=== PATIENT | female | born 1985 | race Caucasian/White ===

== ENCOUNTER 2023-08-30 16:01 | Outpatient (CLI) | payer BC, SELFPAY ==
[2023-08-30] MEDS: iohexol 350 mg/mL 500 mL Btl (per mL) IV (16:06)
[2023-08-30 16:42] LABS: Basophils % 0.4 %; Eosinophils # 0.3 10^3/uL (0.0-0.8); Eosinophils % 3.4 %; Hematocrit 43.3 % (36-47); Lymphocytes # 2.9 10^3/uL (0.8-4.8); Lymphocytes % 30.8 %; Mean Corpuscular HGB Conc 32.3 g/dL (30-55); Mean Corpuscular Hemoglobin 29.5 pg (27-33); Mean Corpuscular Volume 91.2 fl (85-98); Mean Platelet Volume 9.4 fL (7.4-10.4); Monocytes # 0.5 10^3/uL (0.2-0.9); Monocytes % 5.2 %; Neutrophils # 5.67 10^3/uL (1.8-7.7); Neutrophils % 59.9 %; Nucleated Red Blood Cells % 0 %; Platelet Count 357 10^3/cmm (157-399); Red Blood Count 4.75 10^6/uL (3.85-5.65); Red Cell Distribution Width 12.2 % (12.1-15.1); White Blood Count 9.46 10^3/uL (3.29-11.43)
--- NOTE | 2023-08-30 17:00 | CTR_ITS ---
PROCEDURE INFORMATION: Exam: CT Abdomen And Pelvis With Contrast Exam date and time: 08/30/2023 4:47 PM Age: 38 years old Clinical indication: Abdominal pain; Generalized; Prior surgery; Surgery date: 6+ months; Surgery type: Btl; Additional info: R10.9 - unspecified abdominal pain TECHNIQUE: Imaging protocol: Computed tomography of the abdomen and pelvis with contrast. Axial, coronal and sagittal reformatted images were created and reviewed. Radiation optimization: All CT scans at this facility use at least one of these dose optimization techniques: automated exposure control; mA and/or kV adjustment per patient size (includes targeted exams where dose is matched to clinical indication); or iterative reconstruction. Contrast material: OMNIPAQUE 350; Contrast volume: 100 ml; Contrast route: INTRAVENOUS (IV); Other contrast: Oral, omnipaque, 50 omni/ 850 water; REPORTING DATA: Count of CT and Cardiac NM exams in prior 12 months: This patient has received 0 known CTs and 0 known cardiac nuclear medicine studies in the 12 months prior to the current study. COMPARISON: ES surgery / GI images 04/09/2019 3:38 AM RADIATION DOSE METRICS: Total DLP (mGy-cm): 1344.24 FINDINGS: Liver: Unremarkable. Gallbladder and bile ducts: No radiodense gallstones. No biliary ductal dilatation. Pancreas: Unremarkable. Spleen: Unremarkable. Adrenal glands: Normal. No mass. Kidneys and ureters: No mass. No radiodense calculi. No hydronephrosis. Stomach and bowel: Scattered colonic diverticula without evidence of diverticulitis. No obstruction. No bowel wall thickening. No pneumatosis. Appendix: Markedly abnormal appendix, which is markedly distended without abnormal masslike wall thickening. Intraperitoneal space: No free fluid. No organized fluid collection. No free air. Vasculature: Unremarkable. No aneurysm. Lymph nodes: Small mesenteric lymph nodes, nonspecific in appearance. No pathologically enlarged lymph nodes. Urinary bladder: Unremarkable as visualized. Reproductive: Probable involuting right ovarian corpus luteal cyst versus dominant follicle. Bones/joints: No acute osseous abnormality. Soft tissues: Unremarkable. CT/CT abdomen pelvis w con* [id number] IMPRESSION: 1. Markedly abnormal appendix, which is markedly distended without abnormal masslike wall thickening. 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 2. Additional findings, as above.
[2023-08-30 17:22] LABS: Alanine Aminotransferase 20 U/L (0-33); Albumin Level 4.3 g/dL (3.5-5.2); Alkaline Phosphatase 95 U/L (35-105); Amylase 51 U/L (28-100); Anion Gap 15.3 (5-19); Aspartate Amino Transferase 19 U/L (0-32); Blood Urea Nitrogen 9 mg/dL (6-20); Calcium 8.7 mg/dL (8.5-10.5); Carbon Dioxide 26 mmol/L (22-29); Chloride 102 mmol/L (98-107); Globulin 2.6 g/dL (1.3-4.6); Glomerular Filtration Rate 80.7 mL/min (90-130); Glucose 96 mg/dL (65-115); Lipase 45 U/L (13-60); Osmolality Calculated 287 mOsm/kg (285-295); Potassium 4.3 mmol/L (3.5-5.1); Sodium 139 mmol/L (136-145); Total Bilirubin 0.4 mg/dL (0.15-1.2); Total Protein 6.9 g/dL (6.6-8.7)
== END 2023-08-30 16:02 | disposition home or self-care (01) ==
PROVIDERS: PCP Physician Assistant Medical; Visit Provider Nurse Practitioner Family
DX: R10.9 Unspecified abdominal pain (principal); R93.89 Abnormal findings on diagnostic imaging of other specified body structures; Z98.890 Other specified postprocedural states
CPT/HCPCS: 36415; 74177; 80053; 82150; 83690; 85025; Q9967

== ENCOUNTER 2023-08-30 20:27 | Observation (INO) | payer BC, SELFPAY ==
[2023-08-30 20:29] VITALS: BP 147/90; PULSE 106; RESP 18; TEMP 36.8; O2SAT 97; BMI 35.4
[2023-08-30 20:55] LABS: Basophils # 0.1 10^3/uL (0.0-0.1); Basophils % 0.4 %; Eosinophils # 0.2 10^3/uL (0.0-0.8); Eosinophils % 1.3 %; Hematocrit 41.8 % (36-47); Lymphocytes # 2.1 10^3/uL (0.8-4.8); Lymphocytes % 16.5 %; Mean Corpuscular HGB Conc 32.5 g/dL (30-55); Mean Corpuscular Hemoglobin 29.4 pg (27-33); Mean Corpuscular Volume 90.3 fl (85-98); Mean Platelet Volume 9.5 fL (7.4-10.4); Monocytes # 0.6 10^3/uL (0.2-0.9); Monocytes % 4.4 %; Neutrophils # 9.62 10^3/uL (1.8-7.7); Nucleated Red Blood Cells % 0 %; Platelet Count 344 10^3/cmm (157-399); Red Blood Count 4.63 10^6/uL (3.85-5.65); Red Cell Distribution Width 12.2 % (12.1-15.1); White Blood Count 12.49 10^3/uL (3.29-11.43)
[2023-08-30 21:15] LABS: Alanine Aminotransferase 21 U/L (0-33); Albumin Level 4.2 g/dL (3.5-5.2); Alkaline Phosphatase 96 U/L (35-105); Anion Gap 15.8 (5-19); Aspartate Amino Transferase 17 U/L (0-32); Blood Urea Nitrogen 9 mg/dL (6-20); Calcium 8.7 mg/dL (8.5-10.5); Carbon Dioxide 24 mmol/L (22-29); Chloride 103 mmol/L (98-107); Globulin 2.6 g/dL (1.3-4.6); Glomerular Filtration Rate 62.4 mL/min (90-130); Glucose 126 mg/dL (65-115); Lipase 38 U/L (13-60); Osmolality Calculated 288 mOsm/kg (285-295); Potassium 3.8 mmol/L (3.5-5.1); Sodium 139 mmol/L (136-145); Total Bilirubin 0.3 mg/dL (0.15-1.2); Total Protein 6.8 g/dL (6.6-8.7)
[2023-08-30 21:22] LABS: HCG, Serum Qual Negative (Negative)
--- NOTE | 2023-08-30 23:34 | ED_ITS ---
HPI - Abdominal Pain General: Chief Complaint: Abdominal Pain Stated Complaint: Sent by Dr Huynh about appendex Time Seen by Provider: 08/30/23 23:27 History of Present Illness: 38-year-old female comes in today with complaints of abdominal pain. Patient was seen earlier by primary care and referred to the ER for further evaluation and treatment. Patient did have a CT scan done by primary care which noted an appendical mass, possibly adenocarcinoma. Patient has been seen by her primary care for left abdominal tenderness. Patient appears nontoxic. Patient appears in mild to no pain. Patient has a history of some depression and migraine headaches. Patient takes no routine medicines. Patient's only surgery has been a tubal ligation. Associated Symptoms: Reports other (Abnormal CT scan) Review of Systems General: Reports: 10 or more systems reviewed and unremarkable except in HPI and below GI: Reports: abdominal pain and other (Abnormal CT scan) [facility] ED PFSH: Medical History Depression Hx of migraine headaches Surgical History History of tubal ligation Family History Father Hypertension Diabetes Mother Healthy female Social History Smoking and tobacco/nicotine status: never used tobacco/nicotine Second hand smoke exposure: No Lives independently: Yes Household members: spouse and children Physical Exam Const: COMMON NORMALS: alert HENMT: COMMON NORMALS: normocephalic HEAD & SCALP: normocephalic Neck/C-Spine: COMMON NORMALS: full ROM Resp: COMMON NORMALS: normal respiratory effort and clear to auscultation bilaterally AUSCULTATION: clear to auscultation bilaterally Cardio: COMMON NORMALS: regular rate and regular rhythm RATE: regular rate RHYTHM: regular rhythm GI: COMMON NORMALS: Soft to palpation AUSCULTATION: Yes normoactive bowel sounds PALPATION: Yes Soft to palpation and Yes Tenderness to palpation present (GI) (Midepigastric to left upper quadrant) : COMMON NORMALS: Yes no CVA tenderness BLADDER/KIDNEY EXAM: Yes no CVA tenderness Back/Pelvis: COMMON NORMALS: no CVA tenderness and thoracic and lumbar spine normal to inspection Extremity: COMMON NORMALS: normal to inspection and no pedal edema Neuro: SENSORIUM/ORIENTATION: Yes alert Skin: COMMON NORMALS: turgor normal GENERAL SKIN EXAM: turgor normal Course Vital Signs: Vital signs: Vital Signs Temperature 98.2 F 08/30/23 20:29 Pulse Rate 75 10 23:38 Respiratory Rate 18 08/30/23 23:38 Blood Pressure 135/75 08/30/23 23:38 Pulse Oximetry 97 08/30/23 23:38 Oxygen Delivery Me thod Room Air 08/30/23 23:38 MDM - Abdominal Pain Medical Decision Making 38-year-old female comes in today for complaints Abdominal pain and abnormal CT scan done by primary care. Patient reports that she has been having left-sided abdominal pain on and off for 2 weeks. Patient seen primary care today and was ordered a CT scan for further evaluation. CT scan noted diverticula but also noted a appendical mass suggestive of adenocarcinoma. Differential diagnosis includes not limited to appendicitis, appendiceal mass, abscess, adenocarcinoma, diverticulitis, urinary tract infection. CBC showed a leukocytosis of 12.49, CMP had a creatinine 1.0 with remainder labs normal. Discussed exam with Dr. Greene, attending ER physician, who recommended I contact Dr. Cordova, on-call surgeon. Discussed the CT scan with Dr. Cordova who agreed to admission of patient to his services for further evaluation and probable surgical intervention in the morning. Reviewed this with patient and family who agreed to plan. Patient needs admission for IV fluids, IV antibiotics, surgical evaluation and treatment. Lab Data 08/30/23 20:45 08/30/23 20:45 Labs/Radiology: Laboratory Results WBC 12.49 10^3/uL (3.29-11.43) H 08/30/23 20:45 RBC 4.63 10^6/uL (3.85-5.65) 08/30/23 20:45 Hgb 13.60 g/dL (11.27-16.99) 08/30/23 20:45 Hct 41.8 % (36-47) 08/30/23 20:45 MCV 90.3 fl (85-98) 08/30/23 20:45 MCH 29.4 pg (27-33) 08/30/23 20:45 MCHC 32.5 g/dL (30-55) 08/30/23 20:45 RDW 12.2 % (12.1-15.1) 08/30/23 20:45 Plt Count 344 10^3/cmm (157-399) 08/30/23 20:45 MPV 9.5 fL (7.4-10.4) 08/30/23 20:45 Neut % (Auto) 77.0 % 08/30/23 20:45 Lymph % (Auto) 16.5 % 08/30/23 20:45 [place] % (Auto) 4.4 % 08/30/23 20:45 Eos % (Auto) 1.3 % 08/30/23 20:45 Baso % (Auto) 0.4 % 08/30/23 20:45 Neut # (Auto) 9.62 10^3/uL (1.8-7.7) H 08/30/23 20:45 Lymph # (Auto) 2.1 10^3/uL (0.8-4.8) 08/30/23 20:45 [place] # (Auto) 0.6 10^3/uL (0.2-0.9) 08/30/23 20:45 Eos # (Auto) 0.2 10^3/uL (0.0-0.8) 08/30/23 20:45 Baso # (Auto) 0.1 10^3/uL (0.0-0.1) 08/30/23 20:45 Nucleated RBC % (auto) 0 % 08/30/23 20:45 Nucleated RBCs # 0.0 /100WBC 08/30/23 20:45 Sodium 139 mmol/L (136-145) 08/30/23 20:45 Potassium 3.8 mmol/L (3.5-5.1) 08/30/23 20:45 Chloride 103 mmol/L (98-107) 08/30/23 20:45 Carbon Dioxide 24 mmol/L (22-29) 08/30/23 20:45 Anion Gap 15.8 (5-19) 08/30/23 20:45 BUN 9 mg/dL (6-20) 08/30/23 20:45 Creatinine 1.0 mg/dL (0.5-0.9) H 08/30/23 20:45 GFR Calculation 62.4 mL/min (90-130) L 08/30/23 20:45 Glucose 126 mg/dL (65-115) H 08/30/23 20:45 Calculated Osmolality 288 mOsm/kg (285-295) 08/30/23 20:45 Calcium 8.7 mg/dL (8.5-10.5) 08/30/23 20:45 Total Bilirubin 0.3 mg/dL (0.15-1.2) 08/30/23 20:45 AST 17 U/L (0-32) 08/30/23 20:45 ALT 21 U/L (0-33) 08/30/23 20:45 Alkaline Phosphatase 96 U/L (35-105) 08/30/23 20:45 Total Protein 6.8 g/dL (6.6-8.7) 08/30/23 20:45 Albumin 4.2 g/dL (3.5-5.2) 08/30/23 20:45 Globulin 2.6 g/dL (1.3-4.6) 08/30/23 20:45 Lipase 38 U/L (13-60) 08/30/23 20:45 HCG, Qual Negative (Negative) 08/30/23 20:45 All radiology interpretation(s) finalized by discharge Discharge Plan Discharge Patient Disposition: Admitted As Inpatient Admit Provider: Nikita Cordova Clinical Impression: Appendiceal tumor Condition: Stable Coding Level of Care Code ED Wringer Operator for Maddie Calderon
[2023-08-30 23:38] VITALS: BP 135/75; PULSE 75; RESP 18; O2SAT 97
[2023-08-31] VITALS (18 sets, daily range): BP systolic 102–170; BP diastolic 63–89; PULSE 67–94; RESP 9–20; TEMP 36.1–36.9; O2SAT 90–97
--- NOTE | 2023-08-31 00:07 | PC.NURSE ---
Report called to Amy WEBB, to [facility] room 258. All questions and concerns addressed at time of report.
[2023-08-31] MEDS: piperacillin-tazobactam 3.375 GM in sodium chloride 0.9% (plus) 50 ML IV ×3 (00:28→11:36)
[2023-08-31 00:50] LABS: Add Urine Microscopic? NO; Charge for UA Resulting for Rev
[2023-08-31 01:07] LABS: Bilirubin Urine Neg (Negative); Blood Urine Neg (Negative); Glucose Urine UA Norm (Normal); Ketones Urine Negative (Negative); Leukocyte Esterase Urine Negative (Negative); Nitrate Urine Negative (Negative); Protein Urine Neg (Negative); Urine Appearance Clear (CLEAR); Urine Color Yellow (Yellow); Urobilinogen Urine 1 mg/dL (Negative); pH Urine 7 (5-7)
[2023-08-31] MEDS: morphine 4 mg/mL SDV 1 mL IVP ×3 (02:56→20:40)
--- NOTE | 2023-08-31 09:26 | PC.CHAP ---
Pastoral Care Encounter/Spiritual Assessment Type of Contact [] Declined elevator constructor hydraulic visit [] Patient/Family/Request visit [] Outpatient visit [] Follow-up visit [] Physician referral [] Code/Alert [x] Routine visit [] Staff referral [] Actively dying [] Patient sleeping [x] Family support [] [] Out of room [] Palliative care [] [] Receiving care in room [] Pre-surgical visit [] Trauma [] Long length of stay [] ICU visit [] Other: Relational/Emotional Strength [x] Patient feels connected with others/family/visitors/staff [] Distress [] Loneliness/isolation [] Abandonment Spirituality of Patient [x] Person of [place] [] Attends Druze of their [place] [x] Believes in Prayer [] Reads Bible or Mosque materials [] There are Spiritual issues to be addressed Account Resolution Analyst Interventions [x] Prayer [x] Active listening [] Non-anxious presence [x] Spiritual/emotional support [] Crisis/trauma care [] Spiritual counseling [] Bereavement support [] Provided bereavement packet [] Provided Bible/devotional materials [] Provided toy/stuffed animal, coloring book to patient or family member [] Provided Communion [] Anointing/[place] [] Salvation [x] Completed spiritual assessment [] Other: Impact on Illness or Injury [] Angry [] Fearful [] Anxious [] Often cries [] Exhaustion [] Unable to work [] Unable to attend restorationism [] Unable to walk/stand [] Unable to read [] Unable to drive [] Unable to eat/drink [] Unable to sleep [] Unable to be with family [] Patient intubated [] Other: Summary Time spent with patient 5 min
--- NOTE | 2023-08-31 13:12 | P.HP_ITS ---
Providers/Chief Complaint Admitting Physician: Nikita Cordova DO Primary Care Provider: MUNIRA Dimas Chief Complaint: Sent by Worried about appendex History of Present Illness Jackie Cline is a 38 year old female who presents to the hospital with 1 week history of periumbilical abdominal pain. The pain is dull and constant and does not radiate. Palpation makes pain worse. Nothing seems to make the pain better. Denies any nausea, emesis, diarrhea, constipation, hematochezia and/or melena. She was limited her PCP for this who ordered a CT of the abdomen pelvis. CT shows a markedly dilated appendix concerning for possible neoplasm. Review of Systems General: Reports: 10 or more systems reviewed and unremarkable except in HPI and below Medications/Allergies Home Medications Medication Instructions Recorded Confirmed Last Taken Type sumatriptan succinate 25 mg tablet 25 mg PO Q2H PRN Migraine Headache 08/23/21 08/31/23 Unknown History escitalopram oxalate 20 mg tablet 20 mg PO DAILY 08/31/23 08/31/23 2 Days Ago History ~08/29/23 Allergies Allergy/AdvReac Type Severity Reaction Status Date / Time No Known Allergies Allergy Verified 08/30/23 20:35 PFSH Acute PFSH: Medical History Depression Hx of migraine headaches Surgical History History of tubal ligation Family History Father Hypertension Diabetes Mother Healthy female Social History Smoking and tobacco/nicotine status: never used tobacco/nicotine Second hand smoke exposure: No Lives independently: Yes Household members: spouse and children Vitals/I&O/Wt Last Vital Signs Temp 98.2 F 08/31/23 12:06 Pulse 67 08/31/23 12:06 Resp 18 08/31/23 12:06 BP 122/78 08/31/23 12:06 Pulse Ox 97 08/31/23 12:06 O2 Del Method Room Air 08/31/23 12:06 08/30/23 08/31/23 08/31/23 22:59 06:59 14:59 Intake Total 50 / 50 50 / 50 Output Total 700 / 700 Balance -650 / -650 50 / 50 Weight last 48 hrs Weight 240 lb Physical Exam Narrative: General : Patient is well developed , no acute distress, oriented x3 Head : Normal cephalic, a-traumatic. Ears : Pinnae and external canal are normal. Hearing is normal. Eyes : PERRLA, Sclera and injection are normal. No conjunctival discharge. Nose : Mucous membranes are without erythema. Throat : buccal mucosa is normal, gums are without significant recession or hypertrophy. Lungs : Equal chest rise bilaterally, no use of accessory muscles, trachea is midline. Cor : Rate and rhythm are normal. Abdomen : Soft, ND, NT, no g/r/m Extremities : No edema, no cyanosis or clubbing, dorsalis pedis pulses are pr esent bilaterally, non-tender to palpation of calves. Upper extremities are normal bilaterally. Back : non-tender to palpation, no CVA tenderness. Neuro : CN II - XII intact, Upper and lower extremities have equal and full strength Data 08/30/23 20:45 08/30/23 20:45 A&P Assessment and plan (1) Appendix disease: Plan Laparoscopic Appendectomy possible right hemicolectomy The risks and benefits of the procedure, including but not limited to, bleeding, infection, scar, numbness, pain, damage to surrounding structures, conversion to an open procedure, anastomotic leak, were explained to the patient. He is understanding of the risks and wishes to proceed. Attestations Medical Necessity Statement*: Patient may be able to be discharged following the procedure. She will require multiple nights in the hospital if she requires a right hemicolectomy Coding Level of Care Code 09618 Diagnoses Appendix disease K38.9
[2023-08-31] MEDS: sodium chloride 0.9% 1,000 ML 30 ML IV (13:41)
--- NOTE | 2023-08-31 13:44 | P.ANESASSM_ITS ---
Pre-Anesthetic Assessment Height/Weight: Height 1.75 m Weight 108.862 kg Temp Pulse Resp BP Pulse Ox O2 Del Method 98.2 F 67 18 122/78 97 Room Air 08/31/23 12:06 08/31/23 12:06 08/31/23 12:06 08/31/23 12:06 08/31/23 12:06 08/31/23 12:06 Operation Date: 08/31/23 12:30 Proposed Procedures p Laparoscopic Appendectomy(Not Applicable) - Nikita Cordova DO Familial anesthetic complications: none Was Beta Mitzi taken within 24 hours: N/A Was Clonidine taken within 24 hours: N/A Last intake: Intake Last Liquid Date 08/30/23 Last Liquid Time 00:00 Last Solid Date 08/30/23 Last Solid Time 19:00 Social No alcohol and No tobacco Exam alert, oriented x 3, clear to auscultation bilaterally and regular rate & rhythm Airway Submandibular: within normal limits Cervical ROM: within normal limits Mallampati: Class I Dentition: full Metabolic Morbid Obesity Neuropsych Anxiety and Depression Anesthetic Plan ASA status: 2 Anesthesia: General (mod RSI) Medications/Allergies Home Medications Medication Instructions Recorded Confirmed Last Taken Type sumatriptan succinate 25 mg tablet 25 mg PO Q2H PRN Migraine Headache 08/23/21 08/31/23 Unknown History escitalopram oxalate 20 mg tablet 20 mg PO DAILY 08/31/23 08/31/23 2 Days Ago History ~08/29/23 Allergies Allergy/AdvReac Type Severity Reaction Status Date / Time No Known Allergies Allergy Verified 08/30/23 20:35 Current Medications Generic Name Dose Route Start Last Admin Trade Name Freq PRN Reason Stop Dose Admin Piperacillin Sod/Tazobactam 50 mls @ 100 mls/hr 08/31/23 06:00 08/31/23 11:36 Sod 3.375 gm/ Sodium Chloride IV 100 mls/hr Q6H BRITTANY Administration Protocol Sodium Chloride 1,000 mls @ 30 mls/hr 08/31/23 13:45 08/31/23 13:41 Sodium Chloride 0.9% IV 09/01/23 13:44 30 mls/hr .Q24H BRITTANY Administration Morphine Sulfate 4 mg 08/30/23 23:49 08/31/23 02:56 Morphine 4 Mg/Ml Sdv 1 Ml IVP 4 mg Q4H PRN Administration pain PFSH Anesthesia Medical History Depression Hx of migraine headaches Surgical History History of tubal ligation Family History Father Hypertension Diabetes Mother Healthy female Social History Smoking and tobacco/nicotine status: never used tobacco/nicotine Second hand smoke exposure: No Lives independently: Yes Household members: spouse and children Data Anesthesia 08/30/23 20:45 08/30/23 20:45 Short CBC 08/30/23 Range/Units 20:45 WBC 12.49 H (3.29-11.43) 10^3/uL Hgb 13.60 (11.27-16.99) g/dL Hct 41.8 (36-47) % MCV 90.3 (85-98) fl Plt Count 344 (157-399) 10^3/cmm Neut % (Auto) 77.0 % Neut # (Auto) 9.62 H (1.8-7.7) 10^3/uL BMP 08/30/23 20:45 Sodium 139 Potassium 3.8 Chloride 103 Carbon Dioxide 24 BUN 9 Creatinine 1.0 H Glucose 126 H Calcium 8.7 Liver Function 08/30/23 Range/Units 20:45 Total Bilirubin 0.3 (0.15-1.2) mg/dL AST 17 (0-32) U/L ALT 21 (0-33) U/L Alkaline Phosphatase 96 (35-105) U/L Albumin 4.2 (3.5-5.2) g/dL Urine 08/31/23 Range/Units 00:00 Urine Color Yellow (Yellow) Urine Appearance Clear (CLEAR) Urine pH 7 (5-7) Ur Specific [place] 1.010 (1.005-1.030) Urine Protein Neg (Negative) Urine Glucose (UA) Norm (Normal) Urine Ketones Negative (Negative) Urine Nitrate Negative (Negative) Urine Bilirubin Neg (Negative) Ur Leukocyte Esterase Negative (Negative) Cardiac Studies: No Data to Display
[2023-08-31] MEDS: lidocaine-epi 2% 20 mL INJ INJECTION (14:21)
--- NOTE | 2023-08-31 15:32 | P.OP_ITS ---
Operative Report Date of procedure: August 31, 2023 Pre-op diagnosis: Appendiceal mass Post-op diagnosis: same Procedure done: Laparoscopic appendectomy Implants: none Specimens removed/disposition: Appendix Surgeon: Nikita Cordova DO Anesthesia: General Estimated blood loss (mL): 20 Complications: None apparent Brief History: This is a very pleasant 38-year-old female who presents to the hospital outside CT the abdomen pelvis showed an appendiceal mass. Laparoscopic appendectomy was indicated. The risk benefits were explained and documented. Procedure: Patient was wheeled into the operative room and placed on the OR table in a supine position. Abdomen was inspected prepped and draped in usual sterile fashion. Time-out was performed and all present were in agreement. A 15 blade scalp was used to make a stab incision in the left upper quadrant and intra- abdominal insufflation was achieved using a Veress needle. After localizing the tissue incisions were made and a 12 millimeter trocar was placed into the umbilicus as well as a 5mm in the right lower quadrant and a 5 mm in the left lower quadrant . The appendix was identified and was firm and dilated in the middle. Appendix was normal distally. I was able to dissect this away from the surrounding structures down to a somewhat normal base.. I used the Voyant to ligate the mesoappendix at the base. I then used 2 PDS endo-loops to snare the base of the appendix. I then used the LigaSure to ligate the appendix distally. The appendix was removed from the abdomen using an Endo-Catch bag through the umbilical incision. I examined the abdomen and no further pathology was identified. Hemostasis was noted. I then closed the umbilical site with a Miki-David and 0 Vicryl suture in a figure of 8 fashion. All ports removed. Skin was washed and dried. Incisions were closed with 4 O Vicryl in a subcuticular interrupted fashion. Skin glue was applied. Patient tolerated the procedure well.
--- NOTE | 2023-08-31 15:35 | P.DS_ITS ---
Discharge Providers Date of Admission: 08/30/23 23:59 Date of Discharge: August 31, 2023 Attending Provider at Admission: Nikita Cordova DO Attending Provider at Discharge: Nikita Cordova DO Primary Care Provider: MUNIRA Dimas Diagnoses at Discharge Discharge Diagnosis (1) Appendix disease: Status: Acute Reason for Visit Reason for Visit: Sent by Dr Huynh about appendex Hospital Course Hospital Course This is a very pleasant 38-year-old female was found to have an appendiceal mass on an outpatient CT of the abdomen and pelvis. She underwent laparoscopic appendectomy. A mass was identified in the middle of the appendix. The distal appendix was within normal limits and the proximal appendix appeared that might be free of tumor. She underwent laparoscopic appendectomy and was discharged home in good condition the same day. Physical Exam Narrative: General : Patient is well developed , no acute distress, oriented x3 Head : Normal cephalic, a-traumatic. Ears : Pinnae and external canal are normal. Hearing is normal. Eyes : PERRLA, Sclera and injection are normal. No conjunctival discharge. Nose : Mucous membranes are without erythema. Throat : buccal mucosa is normal, gums are without significant recession or hypertrophy. Lungs : Equal chest rise bilaterally, no use of accessory muscles, trachea is midline. Cor : Rate and rhythm are normal. Abdomen : Soft, ND, appropriately tender, no g/r/m Extremities : No edema, no cyanosis or clubbing, dorsalis pedis pulses are present bilaterally, non-tender to palpation of calves. Upper extremities are normal bilaterally. Back : non-tender to palpation, no CVA tenderness. Neuro : CN II - XII intact, Upper and lower extremities have equal and full strength Discharge Data Studies Completed and Pending Pending at discharge Category Date Time Status Pathology: Surgical [PTH] Routine Pth 08/31/23 15:12 Ordered Laboratory Results WBC 12.49 10^3/uL (3.29-11.43) H 08/30/23 20:45 RBC 4.63 10^6/uL (3.85-5.65) 08/30/23 20:45 Hgb 13.60 g/dL (11.27-16.99) 08/30/23 20:45 Hct 41.8 % (36-47) 08/30/23 20:45 MCV 90.3 fl (85-98) 08/30/23 20:45 MCH 29.4 pg (27-33) 08/30/23 20:45 MCHC 32.5 g/dL (30-55) 08/30/23 20:45 RDW 12.2 % (12.1-15.1) 08/30/23 20:45 Plt Count 344 10^3/cmm (157-399) 08/30/23 20:45 MPV 9.5 fL (7.4-10.4) 08/30/23 20:45 Neut % (Auto) 77.0 % 08/30/23 20:45 Lymph % (Auto) 16.5 % 08/30/23 20:45 [place] % (Auto) 4.4 % 08/30/23 20:45 Eos % (Auto) 1.3 % 08/30/23 20:45 Baso % (Auto) 0.4 % 08/30/23 20:45 Neut # (Auto) 9.62 10^3/uL (1.8-7.7) H 08/30/23 20:45 Lymph # (Auto) 2.1 10^3/uL (0.8-4.8) 08/30/23 20:45 [place] # (Auto) 0.6 10^3/uL (0.2-0.9) 08/30/23 20:45 Eos # (Auto) 0.2 10^3/uL (0.0-0.8) 08/30/23 20:45 Baso # (Auto) 0.1 10^3/uL (0.0-0.1) 08/30/23 20:45 Nucleated RBC % (auto) 0 % 08/30/23 20:45 Nucleated RBCs # 0.0 /100WBC 08/30/23 20:45 Sodium 139 mmol/L (136-145) 08/30/23 20:45 Potassium 3.8 mmol/L (3.5-5.1) 08/30/23 20:45 Chloride 103 mmol/L (98-107) 08/30/23 20:45 Carbon Dioxide 24 mmol/L (22-29) 08/30/23 20:45 Anion Gap 15.8 (5-19) 08/30/23 20:45 BUN 9 mg/dL (6-20) 08/30/23 20:45 Creatinine 1.0 mg/dL (0.5-0.9) H 08/30/23 20:45 GFR Calculation 62.4 mL/min (90-130) L 08/30/23 20:45 Glucose 126 mg/dL (65-115) H 08/30/23 20:45 Calculated Osmolality 288 mOsm/kg (285-295) 08/30/23 20:45 Calcium 8.7 mg/dL (8.5-10.5) 08/30/23 20:45 Total Bilirubin 0.3 mg/dL (0.15-1.2) 08/30/23 20:45 AST 17 U/L (0-32) 08/30/23 20:45 ALT 21 U/L (0-33) 08/30/23 20:45 Alkaline Phosphatase 96 U/L (35-105) 08/30/23 20:45 Total Protein 6.8 g/dL (6.6-8.7) 08/30/23 20:45 Albumin 4.2 g/dL (3.5-5.2) 08/30/23 20:45 Globulin 2.6 g/dL (1.3-4.6) 08/30/23 20:45 Lipase 38 U/L (13-60) 08/30/23 20:45 HCG, Qual Negative (Negative) 08/30/23 20:45 Urine Color Yellow (Yellow) 08/31/23 00:00 Urine Appearance Clear (CLEAR) 08/31/23 00:00 Urine pH 7 (5-7) 08/31/23 00:00 Ur Specific [place] 1.010 (1.005-1.030) 08/31/23 00:00 Urine Protein Neg (Negative) 08/31/23 00:00 Urine Glucose (UA) Norm (Normal) 08/31/23 00:00 Urine Ketones Negative (Negative) 08/31/23 00:00 Urine Blood Neg (Negative) 08/31/23 00:00 Urine Nitrate Negative (Negative) 08/31/23 00:00 Urine Bilirubin Neg (Negative) 08/31/23 00:00 Urine Urobilinogen 1 mg/dL (Negative) H 08/31/23 00:00 Ur Leukocyte Esterase Negative (Negative) 08/31/23 00:00 Procedures Performed Laparoscopic appendectomy Vitals Last Vital Signs Temp 98.2 F 08/31/23 12:06 Pulse 67 08/31/23 12:06 Resp 18 08/31/23 12:06 BP 122/78 08/31/23 12:06 Pulse Ox 97 08/31/23 12:06 O2 Del Method Room Air 08/31/23 12:06 Discharge Plan Discharge Patient Disposition: Home Condition: Stable Prescriptions: New Stool Softener 100 mg capsule 100 mg PO BID Qty: 14 0RF hydrocodone-acetaminophen 10-325 mg tablet 1 tab PO Q6H PRN (Reason: pain) Qty: 20 0RF Rx Instructions: May take half of a tab at a time Continued sumatriptan succinate 25 mg tablet 25 mg PO Q2H PRN (Reason: Migraine Headache) Rx Instructions: do not exceed 8 doses per 24 hrs escitalopram oxalate 20 mg tablet 20 mg PO DAILY Discharge Orders: Discharge Order (Routine); Ordered 08/31/23 Ordered By: Nikita Cordova Referrals: Keara Kiran FNP [Primary Care Provider] - Nikita Cordova DO [Physician] - 2 weeks (Follow up on 09/11/23) Discharge Diet: Advance as tolerated Discharge Activity: Limit activity as instructed Patient Instructions: Opioid Safety, Post Anesthesia Care, Pain Management Activity Restrictions/Additional Instructions: No lifting, pushing or pulling over 20 pounds for 6 weeks. Do not soak incisions underwater for 2 weeks. Shower daily. Let the glue fall off on its own. Discharge Attestations Time Spent in Discharge Care*: less than 30 min Quality Metrics Clinical Quality Measures [ No reported AMI, CVA or VTE this stay] Coding Level of Care Code Acute Code for Chg Fwd Diagnoses Appendix disease K38.9
[2023-08-31] MEDS: fentaNYL 50 mcg/mL INJ 2mL IVP (15:49)
--- NOTE | 2023-08-31 15:53 | ANE.PACU2 ---
Inpatient post-anesthesia follow up: Airway intact: Yes Vital signs: Temperature 97.0 F Pulse Rate 94 Respiratory Rate 18 Blood Pressure 155/81 Pulse Oximetry 97 Oxygen Delivery Me thod Simple Mask Oxygen Flow Rate 6 Fraction of Inspir ed Oxygen Hydration adequate: Yes Nausea and vomiting: No Pain level: 3 Mental status: Baseline
[2023-08-31] MEDS: ondansetron 2 mg/ML SDV 2 mL 4 MG IVP ×2 (16:07→17:15)
--- NOTE | 2023-08-31 21:16 | PC.NURSE ---
Patient given discharge instructions and verbalized understanding. Patient left with multiple family members.
[2023-09-24 10:48] LABS: High Grade Lymphoma (FISH)BBPL See Report
== END 2023-08-31 21:17 | disposition home or self-care (01) ==
LOC: ER 23:46 → MEDSURG 08-31
PROVIDERS: Admitting Provider Surgery; Emergency Provider Nurse Practitioner Family; PCP Nurse Practitioner Family; Visit Provider Surgery
PROC: 0DTJ4ZZ Resection of Appendix, Percutaneous Endoscopic Approach (ICD-10-PCS; CPT 44970; principal; 2023-08-31 12:30)
DX: C85.19 Unspecified B-cell lymphoma, extranodal and solid organ sites (principal); E66.01 Morbid (severe) obesity due to excess calories; Z68.35 Body mass index [BMI] 35.0-35.9, adult
CPT/HCPCS: 44970; 36415; 80053; 81003; 83690; 84703; 85025; 88304; 88342; 88374; 96365; 99285; G0378; J1100; J1170; J2250; J2270; J2371; J2405; J2543; J2704; J2710; J3010; J3490; J7030

== ENCOUNTER → 2023-09-11 10:38 | Outpatient (BNVA) | payer BC, SELFPAY | PROVIDERS: PCP Nurse Practitioner Family; Visit Provider Surgery | DX: D37.3 Neoplasm of uncertain behavior of appendix (principal) | CPT/HCPCS: 71046 ==

== ENCOUNTER 2023-09-18 12:07 | Oncology outpatient (recurring) (ONCR) | payer BC, SELFPAY ==
[2023-09-18 13:18] LABS: Basophils % 0.5 %; Eosinophils # 0.3 10^3/uL (0.0-0.8); Eosinophils % 3.6 %; Hematocrit 40.5 % (36-47); Lymphocytes # 1.9 10^3/uL (0.8-4.8); Lymphocytes % 24.8 %; Mean Corpuscular HGB Conc 32.6 g/dL (30-55); Mean Corpuscular Hemoglobin 29.5 pg (27-33); Mean Corpuscular Volume 90.4 fl (85-98); Mean Platelet Volume 9.4 fL (7.4-10.4); Monocytes # 0.5 10^3/uL (0.2-0.9); Monocytes % 6.8 %; Neutrophils # 4.83 10^3/uL (1.8-7.7); Neutrophils % 63.9 %; Nucleated Red Blood Cells % 0 %; Platelet Count 393 10^3/cmm (157-399); Red Blood Count 4.48 10^6/uL (3.85-5.65); Red Cell Distribution Width 12.2 % (12.1-15.1); White Blood Count 7.55 10^3/uL (3.29-11.43)
[2023-09-18 13:38] LABS: Alanine Aminotransferase 17 U/L (0-33); Albumin Level 4.1 g/dL (3.5-5.2); Alkaline Phosphatase 105 U/L (35-105); Anion Gap 13.3 (5-19); Aspartate Amino Transferase 16 U/L (0-32); Blood Urea Nitrogen 12 mg/dL (6-20); Calcium 8.8 mg/dL (8.5-10.5); Carbon Dioxide 26 mmol/L (22-29); Chloride 105 mmol/L (98-107); Creatinine Clr Calc Pharmacy 147.7913; Globulin 2.7 g/dL (1.3-4.6); Glomerular Filtration Rate 94.2 mL/min (90-130); Glucose 105 mg/dL (65-115); Lactate Dehydrogenase 226 U/L (135-214); Osmolality Calculated 290 mOsm/kg (285-295); Potassium 4.3 mmol/L (3.5-5.1); Sodium 140 mmol/L (136-145); Total Bilirubin 0.2 mg/dL (0.15-1.2); Total Protein 6.8 g/dL (6.6-8.7)
[2023-09-18 14:24] LABS: Hepatitis A Antibody IgM Non-Reactive (Nonreactive); Hepatitis B Core IgM Non-Reactive (Nonreactive); Hepatitis B Surface Antigen Non-Reactive (Nonreactive); Hepatitis C Virus Antibody Non-Reactive (Nonreactive)
== END 2023-09-18 23:59 | disposition home or self-care (01) ==
PROVIDERS: PCP Nurse Practitioner Family; Visit Provider Internal Medicine Medical Oncology
DX: C85.10 Unspecified B-cell lymphoma, unspecified site (principal); Z79.899 Other long term (current) drug therapy
CPT/HCPCS: 36415; 80053; 80074; 83615; 85025

== ENCOUNTER 2023-09-28 14:31 | Outpatient (CLI) | payer BC, SELFPAY ==
--- NOTE | 2023-09-28 14:40 | USCV_ITS ---
Jackie Cline Age: 38 Gender: F : 1985 Exam Date: 09/28/2023 15:04 Ordering Phys: Angella Friedman MD Technologist: Satya Mtz Exam Location: [facility] [place] Indication: high risk meds BP: 133 / 80 HR: 63 Rhythm: Sinus Technical Quality: Adequate MEASUREMENTS (Male / Female) Normal Values 2D ECHO LVOT Diameter 2.0 cm LV Ejection Fraction MOD 2C 57.6 % LV Ejection Fraction 2C AL 56.6 % LA Diameter 4.1 cm LA Width 3.6 cm LA Height 4.8 cm RA Width 3.5 cm RA Height 4.6 cm Aorta at Sinotubular Diameter 2.9 cm M-MODE Aortic Annulus Diameter 2.9 cm LA Ao Ratio MM 1.4 MV E Point Septal Separation 0.6 cm DOPPLER AV Peak Velocity 118.0 cm/s LVOT Peak Velocity 79.0 cm/s AV Area Cont Eq vti 2.1 cm squared AV Area Cont Eq pk 2.1 cm squared MV Peak Velocity 103.0 cm/s MV Area PHT 5.9 cm squared Mitral E to A Ratio 1.4 MV E' Velocity 44.5 cm/s Mitral E to MV E' Ratio 6.5 Mitral E to LV E' Lateral Ratio 5.9 Mitral E to LV E' Septal Ratio 7.1 TR Peak Velocity 338.2 cm/s TR Peak Gradient 45.8 mmHg TR Mean Velocity 270.1 cm/s TR Mean Gradient 32.6 mmHg TR Velocity Time Integral 71.2 cm Right Atrial Pressure 8.0 mmHg Pulmonary Artery Systolic Pressu 53.8 mmHg PV Peak Velocity 80.0 cm/s RV Acceleration Time 0.2 s RV Ejection Time 0.3 s RV AcT/ET 0.5 FINDINGS Left Ventricle Normal left ventricular size, systolic function and wall thickness, with no regional wall motion abnormalities. Estimated ejection fraction is 60%. Normal left ventricular wall thickness. Normal diastolic filling pattern. Right Ventricle The right ventricle is normal in size and function. Right Atrium The right atrium is normal in size. Left Atrium The left atrium is normal in size. Mitral Valve Structurally normal mitral valve without significant stenosis or prolapse. There is trivial mitral regurgitation. Aortic Valve Structurally normal aortic valve without significant sclerosis or stenosis. There is no aortic regurgitation. Tricuspid Valve Structurally normal tricuspid valve without significant stenosis. There is trivial regurgitation. Pulmonary artery systolic pressure is normal. Pulmonic Valve Structurally normal pulmonic valve without significant stenosis. There is no pulmonic regurgitation. Pericardium Normal pericardium without effusion. Aorta Normal ascending aorta dimension. IVC The inferior vena cava appears normal. CONCLUSIONS Jhoan Metz MD (Electronically Signed) Final Date: 29 September 2023 09:17 S
== END 2023-09-28 14:32 | disposition home or self-care (01) ==
LOC: RAD 14:32
PROVIDERS: PCP Nurse Practitioner Family; Visit Provider Internal Medicine Medical Oncology
DX: Z79.899 Other long term (current) drug therapy (principal)
CPT/HCPCS: 93306

== ENCOUNTER 2023-10-22 14:46 | Outpatient (CLI) | payer BC, SELFPAY ==
[2023-10-22 15:19] LABS: Mean Corpuscular HGB Conc 31.1 g/dL (30-55); Mean Corpuscular Hemoglobin 28.8 pg (27-33); Mean Corpuscular Volume 92.7 fl (85-98); Mean Platelet Volume 8.7 fL (7.4-10.4); Platelet Count 475 10^3/cmm (157-399); Red Blood Count 3.99 10^6/uL (3.85-5.65); Red Cell Distribution Width 13.3 % (12.1-15.1)
[2023-10-22 16:37] LABS: Slide Review Slide Review Perform
[2023-10-22 16:41] LABS: Absolute Segmented Neutrophil 20.6 10/cmm (1.6-7.1); Band Neutrophils Absolute 4.1 10^3/cmm (0.0-1.2); Eosinophils 0 %; Lymphocytes 11 %; Lymphocytes Absolute 3.4 10^3/cmm (1.2-3.4); Monocytes Absolute 0.9 10^3/cmm (0.1-0.6); Segmented Neutrophils 66 %; Total Cells Counted 100 (0-100)
[2023-10-22 16:42] LABS: Absolute Neutrophil 24.7 10^3/cmm (1.4-6.5); Platelet Estimate Normal (Normal)
[2023-10-23 08:45] LABS: White Blood Count 31.24 10^3/uL (3.29-11.43)
== END 2023-10-22 14:47 | disposition home or self-care (01) ==
LOC: LAB 14:55
PROVIDERS: PCP Nurse Practitioner Family; Visit Provider Internal Medicine Medical Oncology
DX: C83.38 Diffuse large B-cell lymphoma, lymph nodes of multiple sites (principal)
CPT/HCPCS: 36415; 85007; 85025

== ENCOUNTER → 2025-03-13 09:09 | Outpatient (BNVA) | payer BC, SELFPAY | PROVIDERS: PCP Nurse Practitioner Family; Visit Provider Nurse Practitioner Family | DX: R53.83 Other fatigue (principal) | CPT/HCPCS: 84439; 84443 ==

== ENCOUNTER → 2025-09-29 14:47 | Outpatient (BNVA) | payer BC, SELFPAY | PROVIDERS: PCP Nurse Practitioner Family; Visit Provider Nurse Practitioner Family | DX: Z01.419 Encounter for gynecological examination (general) (routine) without abnormal findings (principal) | CPT/HCPCS: 87070; 87205; 87624 ==